=== PATIENT | male | born 1975 | race Caucasian/White ===

== ENCOUNTER 2018-03-07 18:07 | Emergency (ER) | payer OTHER, SELFPAY ==
[2018-03-07 18:14] VITALS: BP 146/87; PULSE 85; RESP 14; TEMP 36.8; O2SAT 99; BMI 28.7
--- NOTE | 2018-03-07 18:19 | DI.RAD.S_ITS ---
PROCEDURE: XR KNEE RT 3V INDICATIONS: fall skiing, pain/swelling, unable to bear wt. TECHNIQUE: 2 views of the knee were acquired. COMPARISON: None. FINDINGS: Bones: No fractures or dislocations. No suspicious bony lesions. There is a small patellar enthesophyte. Soft tissues: No joint effusion. No suspicious soft tissue calcifications. IMPRESSION: No acute radiographic findings. If pain persists, consider advanced imaging with CT or MRI. Dictated by: Rosa Lehman M.D. on 03/07/2018 at 18:51 Approved by: Rosa Lehman M.D. on 03/07/2018 at 18:51
--- NOTE | 2018-03-07 19:50 | ED.LOWEXIN ---
HPI - Extremity Injury (Lower) <FE Salazar - Last Filed: 03/07/18 22:36> General Chief Complaint: Extremity Injury, Lower Stated Complaint: LEFT KNEE INJURY Time Seen by Provider: 03/07/18 19:09 Source: patient Mode of arrival: ambulatory Limitations: no limitations History of Present Illness HPI Narrative: 42-year-old healthy male that is a nonsmoker here for complaint of pain to his right knee. He states that he was skiing today when he had a skiing accident where his right knee was bent awkwardly towards the lateral aspect of the right knee. He reports pain to the lateral knee. Increased pain with ambulation and movement of the right knee. He denies any head injury. He denies any other concerns or complaints other than the pain to the right knee. Slight swelling to the right knee. He denies any open lesions. No other concerns or complaints at this timeframe. MD complaint: knee injury Related Data Allergies Allergy/AdvReac Type Severity Reaction Status Date / Time venom-honey bee Allergy Severe Severe Unverified 05/29/17 11:57 [BEE VENOM (HONEY BEE)] local swelling. Sulfa (Sulfonamide Allergy Mild Rash Verified 03/07/18 18:17 Antibiotics) Review of Systems <FE Salazar - Last Filed: 03/07/18 22:36> Constitutional Denies chills, Denies fever(s), Denies lethargy and Denies weakness Eyes Denies change in vision, Denies eye discharge, Denies irritation and Denies loss of vision ENT Ears, Nose, Mouth, and Throat: Denies change in voice, Denies neck pain and Denies sore throat Cardiovascular Denies chest pain, Denies irregular heart rhythm, Denies lightheadedness, Denies palpitations, Denies dyspnea, Denies dyspnea on exertion and Denies orthopnea Respiratory Denies cough, Denies dyspnea, Denies dyspnea on exertion and Denies wheezing Gastrointestinal Gastrointestinal: Denies abdominal pain, Denies change in bowel habits, Denies diarrhea, Denies nausea and Denies vomiting Genitourinary Denies hematuria, Denies flank pain, Denies urinary incontinence and Denies urinary urgency Musculoskeletal Denies neck pain Integumentary/Breasts Denies pruritus, Denies erythema, Denies rash and Denies wounds Neurologic Denies confusion, Denies loss of vision and Denies weakness Psychiatric Denies anxiety, Denies confusion, Denies depression, Denies homicidal ideation and Denies suicidal ideation Endocrine Denies palpitations Hematologic/Lymphatic Denies easy bruising Allergic/Immunologic Denies wheezing Exam <FE Salazar - Last Filed: 03/07/18 22:36> Initial Vital Signs Initial Vital Signs: Vital Signs Temperature 98.3 F 03/07/18 18:14 Pulse Rate 85 03/07/18 18:14 Respiratory Rate 14 03/07/18 18:14 Blood Pressure 146/87 H 03/07/18 18:14 Pulse Oximetry 99 03/07/18 18:14 Const General: cooperative and well developed Nutritional Appearance: well nourished Orientation: alert, awake, oriented x3 and not confused HENMT Mouth: oral mucosae normal and moist mucous membranes Eyes Conjunctivae: conjunctivae normal Sclera: sclerae normal Pupils: PERRL EOM: EOM intact bilaterally Resp Effort & Inspection: normal respiratory effort, able to speak in complete sentences, no respiratory distress and no use of accessory muscles Auscultation: clear to auscultation bilaterally, no rales, no rhonchi and no wheezes Cardio Rate: regular rate Rhythm: regular rhythm Heart Sounds: no click, no gallops, no murmurs and no rubs Pulses: normal peripheral pulses GI Inspection: non-distended Palpation: soft, no hepatosplenomegaly, No guarding, No pulsatile mass and No tender Auscultation: normal bowel sounds Skin General: no rashes or lesions noted, No jaundice and No petechiae Neuro General: alert, oriented x3, gait normal and no focal motor deficits Speech: speech normal Extrem Other: Tenderness on palpation to the lateral aspect of the right knee. Slight amount of swelling to the anterior portion of the right knee. No deformities. No ecchymosis. Distal sensation is intact. Distal pulses are intact. Decreased range of motion of the knee due to pain. Distal range of motion is intact. Negative anterior-posterior drawer sign. Negative varus and valgus stress test. <Aditi Abernathy DO - Last Filed: 03/08/18 04:03> Initial Vital Signs Initial Vital Signs: Vital Signs Temperature 98.3 F 03/07/18 18:14 Pulse Rate 85 03/07/18 18:14 Respiratory Rate 14 03/07/18 18:14 Blood Pressure 146/87 H 03/07/18 18:14 Pulse Oximetry 99 03/07/18 18:14 Course <FE Salazar - Last Filed: 03/07/18 22:36> Orders Ordered: Discontinued Medications Hydrocodone Bitart/Acetaminophen ([place] 5/325) 1 tab PO NOW ONE Stop: 03/07/18 20:57 Last Admin: 03/07/18 21:23 Dose: 1 tab Vital Signs - 8 hr 03/07/18 21:37 Pulse Rate 72 Respiratory Rate 16 Blood Pressure 131/99 H Pulse Oximetry 98 <Aditi Abernathy DO - Last Filed: 03/08/18 04:03> Orders Ordered: Discontinued Medications Hydrocodone Bitart/Acetaminophen ([place] 5/325) 1 tab PO NOW ONE Stop: 03/07/18 20:57 Last Admin: 03/07/18 21:23 Dose: 1 tab Vital Signs - 8 hr 03/07/18 21:37 Pulse Rate 72 Respiratory Rate 16 Blood Pressure 131/99 H Pulse Oximetry 98 MDM - Extremity Injury (Lower) <FE Salazar - Last Filed: 03/07/18 22:36> Imaging Data Right knee pain : Radiologist's impression: [address] [address] XRay Report Signed Patient: Ajay Sharp [facility]R#: [id number] : 1975Acct:[id number] Age/Sex: 42 / MDate of Service: 03/07/18 Loc: ED Accession Number: [id number] Procedure: XR knee RT 3V Ordering Provider: Aditi Abernathy D.O. PROCEDURE: XR KNEE RT 3V INDICATIONS: fall skiing, pain/swelling, unable to bear wt. TECHNIQUE: 2 views of the knee were acquired. COMPARISON: None. FINDINGS: Bones: No fractures or dislocations. No suspicious bony lesions. There is a small patellar enthesophyte. Soft tissues: No joint effusion. No suspicious soft tissue calcifications. IMPRESSION: No acute radiographic findings. If pain persists, consider advanced imaging with CT or MRI. Dictated by: Rosa Lehman M.D. on 03/07/2018 at 18:51 Approved by: Rosa Lehman M.D. on 03/07/2018 at 18:51 [facility] Narrative Medical decision making narrative: X-ray the right knee was obtained was negative for any acute findings. Negative anterior-posterior drawer sign. Negative varus and valgus stress test pain is to the lateral aspect of the right knee. Will treat for any sprain at this time with knee immobilizer and crutches. [id number] ibuprofen or Tylenol as needed for any discomfort. Ice and elevation help with swelling. Limit weight-bearing until able to bear weight pain free. Differential of soft tissue injury to the right knee including the MCL. He is referred to Orthopedics for further evaluation and if pain is not improved recommended MRI. For any worsening symptoms return to the emergency room. Discharge Plan Departure Patient Disposition: Home Clinical Impression: Knee sprain Discharge Date/Time: 03/07/18 21:37 Interventions: ED Discharge Assessment Last Done: 03/07/18 21:37 Instructions: DI for Knee Pain Activity Restrictions/Additional Instructions: X-ray the right knee was obtained was negative for any acute fractures or findings. Signs and symptoms presents as a sprain to the right knee. Your placed in a knee immobilizer for comfort and support. Crutches for nonweightbearing. Use as directed. [id number] Tylenol or Motrin as needed for any discomfort. Ice and elevation help with any swelling. Follow up with primary care provider. May call Orthopedics on Saturday to schedule follow-up appointment as may need to have MRI to rule out soft tissue injury if pain does not resolve. Referrals: Tonya Silver MD [Physician] - Marcus Payton MD [Physician] - <Aditi Abernathy DO - Last Filed: 03/08/18 04:03> Cosign ED Attending Varshaature Attestation: I was immediately available in the department for consultation. Documentation has been reviewed. I agree with assessment and plan.
--- NOTE | 2018-03-07 19:53 | ED_ITS ---
HPI - Extremity Injury (Lower) <FE Salazar - Last Filed: 03/07/18 22:36> General Chief Complaint: Extremity Injury, Lower Stated Complaint: LEFT KNEE INJURY Time Seen by Provider: 03/07/18 19:09 Source: patient Mode of arrival: ambulatory Limitations: no limitations History of Present Illness HPI Narrative: 42-year-old healthy male that is a nonsmoker here for complaint of pain to his right knee. He states that he was skiing today when he had a skiing accident where his right knee was bent awkwardly towards the lateral aspect of the right knee. He reports pain to the lateral knee. Increased pain with ambulation and movement of the right knee. He denies any head injury. He denies any other concerns or complaints other than the pain to the right knee. Slight swelling to the right knee. He denies any open lesions. No other concerns or complaints at this timeframe. MD complaint: knee injury Related Data Allergies Allergy/AdvReac Type Severity Reaction Status Date / Time venom-honey bee Allergy Severe Severe Unverified 05/29/17 11:57 [BEE VENOM (HONEY BEE)] local swelling. Sulfa (Sulfonamide Allergy Mild Rash Verified 03/07/18 18:17 Antibiotics) Review of Systems <FE Salazar - Last Filed: 03/07/18 22:36> Constitutional Denies chills, Denies fever(s), Denies lethargy and Denies weakness Eyes Denies change in vision, Denies eye discharge, Denies irritation and Denies loss of vision ENT Ears, Nose, Mouth, and Throat: Denies change in voice, Denies neck pain and Denies sore throat Cardiovascular Denies chest pain, Denies irregular heart rhythm, Denies lightheadedness, Denies palpitations, Denies dyspnea, Denies dyspnea on exertion and Denies orthopnea Respiratory Denies cough, Denies dyspnea, Denies dyspnea on exertion and Denies wheezing Gastrointestinal Gastrointestinal: Denies abdominal pain, Denies change in bowel habits, Denies diarrhea, Denies nausea and Denies vomiting Genitourinary Denies hematuria, Denies flank pain, Denies urinary incontinence and Denies urinary urgency Musculoskeletal Denies neck pain Integumentary/Breasts Denies pruritus, Denies erythema, Denies rash and Denies wounds Neurologic Denies confusion, Denies loss of vision and Denies weakness Psychiatric Denies anxiety, Denies confusion, Denies depression, Denies homicidal ideation and Denies suicidal ideation Endocrine Denies palpitations Hematologic/Lymphatic Denies easy bruising Allergic/Immunologic Denies wheezing Exam <FE Salazar - Last Filed: 03/07/18 22:36> Initial Vital Signs Initial Vital Signs: Vital Signs Temperature 98.3 F 03/07/18 18:14 Pulse Rate 85 03/07/18 18:14 Respiratory Rate 14 03/07/18 18:14 Blood Pressure 146/87 H 03/07/18 18:14 Pulse Oximetry 99 03/07/18 18:14 Const General: cooperative and well developed Nutritional Appearance: well nourished Orientation: alert, awake, oriented x3 and not confused HENMT Mouth: oral mucosae normal and moist mucous membranes Eyes Conjunctivae: conjunctivae normal Sclera: sclerae normal Pupils: PERRL EOM: EOM intact bilaterally Resp Effort & Inspection: normal respiratory effort, able to speak in complete sentences, no respiratory distress and no use of accessory muscles Auscultation: clear to auscultation bilaterally, no rales, no rhonchi and no wheezes Cardio Rate: regular rate Rhythm: regular rhythm Heart Sounds: no click, no gallops, no murmurs and no rubs Pulses: normal peripheral pulses GI Inspection: non-distended Palpation: soft, no hepatosplenomegaly, No guarding, No pulsatile mass and No tender Auscultation: normal bowel sounds Skin General: no rashes or lesions noted, No jaundice and No petechiae Neuro General: alert, oriented x3, gait normal and no focal motor deficits Speech: speech normal Extrem Other: Tenderness on palpation to the lateral aspect of the right knee. Slight amount of swelling to the anterior portion of the right knee. No deformities. No ecchymosis. Distal sensation is intact. Distal pulses are intact. Decreased range of motion of the knee due to pain. Distal range of motion is intact. Negative anterior-posterior drawer sign. Negative varus and valgus stress test. <Aditi Abernathy DO - Last Filed: 03/08/18 04:03> Initial Vital Signs Initial Vital Signs: Vital Signs Temperature 98.3 F 03/07/18 18:14 Pulse Rate 85 03/07/18 18:14 Respiratory Rate 14 03/07/18 18:14 Blood Pressure 146/87 H 03/07/18 18:14 Pulse Oximetry 99 03/07/18 18:14 Course <FE Salazar - Last Filed: 03/07/18 22:36> Orders Ordered: Discontinued Medications Hydrocodone Bitart/Acetaminophen ([place] 5/325) 1 tab PO NOW ONE Stop: 03/07/18 20:57 Last Admin: 03/07/18 21:23 Dose: 1 tab Vital Signs - 8 hr 03/07/18 21:37 Pulse Rate 72 Respiratory Rate 16 Blood Pressure 131/99 H Pulse Oximetry 98 <Aditi Abernathy DO - Last Filed: 03/08/18 04:03> Orders Ordered: Discontinued Medications Hydrocodone Bitart/Acetaminophen ([place] 5/325) 1 tab PO NOW ONE Stop: 03/07/18 20:57 Last Admin: 03/07/18 21:23 Dose: 1 tab Vital Signs - 8 hr 03/07/18 21:37 Pulse Rate 72 Respiratory Rate 16 Blood Pressure 131/99 H Pulse Oximetry 98 MDM - Extremity Injury (Lower) <FE Salazar - Last Filed: 03/07/18 22:36> Imaging Data Right knee pain : Radiologist's impression: [address] [address] XRay Report Signed Patient: Ajay Sharp AMR#: [id number] : 1975Acct:[id number] Age/Sex: 42 / MDate of Service: 03/07/18 Loc: ED Accession Number: [id number] Procedure: XR knee RT 3V Ordering Provider: Aditi Abernathy D.O. PROCEDURE: XR KNEE RT 3V INDICATIONS: fall skiing, pain/swelling, unable to bear wt. TECHNIQUE: 2 views of the knee were acquired. COMPARISON: None. FINDINGS: Bones: No fractures or dislocations. No suspicious bony lesions. There is a small patellar enthesophyte. Soft tissues: No joint effusion. No suspicious soft tissue calcifications. IMPRESSION: No acute radiographic findings. If pain persists, consider advanced imaging with CT or MRI. Dictated by: Rosa Lehman M.D. on 03/07/2018 at 18:51 Approved by: Rosa Lehman M.D. on 03/07/2018 at 18:51 [facility] Narrative Medical decision making narrative: X-ray the right knee was obtained was negative for any acute findings. Negative anterior-posterior drawer sign. Negative varus and valgus stress test pain is to the lateral aspect of the right knee. Will treat for any sprain at this time with knee immobilizer and crutches. [id number] ibuprofen or Tylenol as needed for any discomfort. Ice and elevation help with swelling. Limit weight-bearing until able to bear weight pain free. Differential of soft tissue injury to the right knee including the MCL. He is referred to Orthopedics for further evaluation and if pain is not improved recommended MRI. For any worsening symptoms return to the emergency room. Discharge Plan Departure Patient Disposition: Home Clinical Impression: Knee sprain Discharge Date/Time: 03/07/18 21:37 Interventions: ED Discharge Assessment Last Done: 03/07/18 21:37 Instructions: DI for Knee Pain Activity Restrictions/Additional Instructions: X-ray the right knee was obtained was negative for any acute fractures or findings. Signs and symptoms presents as a sprain to the right knee. Your placed in a knee immobilizer for comfort and support. Crutches for nonweightbearing. Use as directed. [id number] Tylenol or Motrin as needed for any discomfort. Ice and elevation help with any swelling. Follow up with primary care provider. May call Orthopedics on Saturday to schedule follow-up appointment as may need to have MRI to rule out soft tissue injury if pain does not resolve. Referrals: Tonya Silver MD [Physician] - Marcus Payton MD [Physician] - <Aditi Abernathy DO - Last Filed: 03/08/18 04:03> Cosign ED Attending Varshaature Attestation: I was immediately available in the department for consultation. Documentation has been reviewed. I agree with assessment and plan.
[2018-03-07] MEDS: HYDROCODONE/ACET 5/325 TABLET 1 TAB PO (21:23)
--- NOTE | 2018-03-07 21:36 | PC.NURSE ---
Pt has own crutches.
[2018-03-07 21:37] VITALS: BP 131/99; PULSE 72; RESP 16; O2SAT 98
== END 2018-03-07 21:37 | disposition home or self-care (01) ==
PROVIDERS: Emergency Provider Nurse Practitioner Family
DX: S83.91XA Sprain of unspecified site of right knee, initial encounter (principal); Y93.23 Activity, snow (alpine) (downhill) skiing, snowboarding, sledding, tobogganing and snow tubing
CPT/HCPCS: 73562; 99283